=== PATIENT | male | born 1985 | race Caucasian/White ===

== ENCOUNTER → 2020-01-07 11:40 | Outpatient (BNVA) | payer OTHER, SELFPAY | PROVIDERS: Visit Provider Nurse Practitioner Family | DX: R06.00 Dyspnea, unspecified (principal); R53.83 Other fatigue; Z11.59 Encounter for screening for other viral diseases | CPT/HCPCS: 87635 ==

== ENCOUNTER 2020-01-08 19:41 | Emergency (ER) | payer OTHER, SELFPAY ==
[2020-01-08 19:47] VITALS: BP 127/81; PULSE 98; RESP 18; TEMP 36.9; O2SAT 99; BMI 23.7
[2020-01-08 20:11] VITALS: BP 125/81; PULSE 98; RESP 17; O2SAT 98
--- NOTE | 2020-01-08 20:21 | W.ED.GENADLT ---
HPI - General Adult General: Chief complaint: General Medical Stated complaint: cp Time Seen by Provider: 01/08/20 20:01 History of Present Illness: HPI narrative: Patient is a 34-year-old male that comes to the ED with near syncope and abdominal pain is moved into the scrotum area. Patient says symptoms started 2 days ago on . The near syncope events have happened twice in the last 2 days and both occurred when he was up and active. Patient describes getting an numbness tingling feeling and getting lightheaded and he had to sit down and rest. He did not pass out or have any loss of consciousness. He said after he rested his symptoms went away. Denies any chest pain during near syncope episode as well. In the last 24 hours patient is started having some mid abdominal pain that has now moved down into the scrotum area. He describes the scrotum pain getting worse after he urinates. Denies any hematuria, dysuria, constipation, diarrhea, blood in the stool, nausea/vomiting, fevers, chills, penile discharge or lesions. Associated symptoms: Deny chest pain, dyspnea, headache(s), nausea, rash, palpitations or vomiting Review of Systems Const: Denies: fever(s), chills or fatigue Eyes: Denies: change in vision or eye discomfort ENMT: Denies: throat pain, odynophagia, nasal discharge or nasal congestion Card: Reports: lightheadedness (Numbness and tingling sensation throughout his body during near syncopal episode) and pre-syncope; Denies: chest pain, palpitations, edema, swelling of feet/ankles, dyspnea on exertion or orthopnea Resp: Denies: dyspnea, productive cough or non-productive cough GI: Reports: abdominal pain; Denies: nausea, vomiting, diarrhea, constipation or hematochezia : Reports: genital pain; Denies: flank pain, difficulty urinating, dysuria, hematuria, penile discharge or scrotal swelling Musc: Denies: neck pain, back pain or extremity swelling Skin/Breast: Denies: rash or new lesions Neuro: Denies: headache(s), numbness in extremities or weakness in extremities Physical Exam Const: COMMON NORMALS: no acute distress, patient oriented x3, healthy appearing and alert GENERAL APPEARANCE: cooperative and comfortable HENMT: COMMON NORMALS: normocephalic HEAD & SCALP: normocephalic MOUTH: Normal oral and palatal mucosa present THROAT: posterior oropharynx normal and uvula midline Eye: COMMON NORMALS: Equal, round and reactive pupils present PUPIL: Yes Equal, round and reactive pupils present Neck/C-Spine: COMMON NORMALS: supple GENERAL: Yes normal visual inspection Resp: COMMON NORMALS: normal respiratory effort, No retractions, No use of accessory muscles and clear to auscultation bilaterally AUSCULTATION: clear to auscultation bilaterally Cardio: COMMON NORMALS: regular rate, regular rhythm, S1 normal heart sound present, S2 normal heart sound present, No gallops present (Cardio), No clicks present (Cardio), No murmurs present (Cardio) and Peripheral pulses 2+ throughout RATE: regular rate RHYTHM: regular rhythm HEART SOUNDS: S1 normal heart sound present and S2 normal heart sound present PERIPHERAL PULSES: Peripheral pulses 2+ throughout GI: COMMON NORMALS: Normal to inspection, nondistended, normoactive bowel sounds present, Soft to palpation, non-tender and no masses PALPATION: Yes Soft to palpation : COMMON NORMALS: Yes no CVA tenderness BLADDER/KIDNEY EXAM: Yes no CVA tenderness SCROTUM: Yes Scrotal tenderness present Back/Pelvis: COMMON NORMALS: no CVA tenderness Extremity: COMMON NORMALS: normal to inspection and no pedal edema Neuro: COMMON NORMALS: patient oriented x3, CN's II-XII intact bilaterally, moves all extremities, no focal motor deficits and no sensory deficits noted SENSORIUM/ORIENTATION: Yes alert SENSORY EXAM: Yes extremities (intact) MOTOR EXAM: 5/5 motor strength present throughout Skin: COMMON NORMALS: no rashes or lesions noted GENERAL SKIN EXAM: no rashes or lesions noted and dry skin Course ED course: Heart Score-1-no history of diabetes, hypertension, hypercholesterolemia or smoking. Vital Signs: Vital signs: Vital Signs Temperature 98.4 F 01/08/20 19:47 Pulse Rate 72 01/08/20 21:50 Respiratory Rate 97 H 01/08/20 21:50 Blood Pressure 119/75 01/08/20 21:50 Pulse Oximetry 97 01/08/20 21:50 MDM - General Adult MDM Narrative: Medical decision making narrative: Patient is a 34-year-old male who comes to the ED with near syncopal episode and genital pain. Exam shows a patient no acute distress or pain. He had some mild tenderness upon palpation of the scrotum. EKG showed normal sinus rhythm with no signs of ST segment elevation or depression seen. Troponin negative. HEART score-1 White blood cells 5.6. CMP and UA were unremarkable. Ultrasound of scrotum showed spermatocele, but no torsion or acute epididymitis. Patient was diagnosed with near syncope and spermatocele. Patient told to follow-up with PCP in 7 to 10 days for reevaluation. Return to ED precautions given. Patient understood and agree with plan. Lab Data: Attestation: I reviewed the patient's lab results. Labs: Lab Results 01/08/20 01/08/20 01/08/20 Range/Units 20:08 20:08 20:08 WBC 5.6 (4.0-10.0) 10^3/ uL RBC 5.03 (4.1-5.3) 10^6/u L Hgb 14.8 (11.7-16.6) g/dL Hct 44.5 (42.0-52.0) % MCV 88.5 (80-94) fL MCH 29.4 (28.0-34.0) pg MCHC 33.3 (30.0-36.0) g/dL RDW 12.0 L (12.1-15.1) % Plt Count 232 (130-400) 10^3/c mm MPV 10.3 (7.4-10.4) fL Neut % (Auto) 66.2 % Lymph % (Auto) 21.0 % Walton % (Auto) 11.2 % Eos % (Auto) 1.2 % Baso % (Auto) 0.4 % Neut # (Auto) 3.72 (1.8-7.7) 10^3/u L Lymph # (Auto) 1.2 (0.8-4.8) 10^3/u L Walton # (Auto) 0.6 (0.2-0.9) 10^3/u L Eos # (Auto) 0.1 (0.0-0.8) 10^3/u L Baso # (Auto) 0.0 (0.0-0.1) 10^3/u L Nucleated RBC % (a uto) 0 % Nucleated RBCs # 0.0 /100WBC Sodium 137 (136-145) mmol/L Potassium 3.3 L (3.5-5.1) mmol/L Chloride 102 (98-107) mmol/L Carbon Dioxide 23 (22-29) mmol/L Anion Gap 15.3 (5-19) BUN 8 (6-20) mg/dL Creatinine 0.8 (0.7-1.2) mg/dL GFR Calculation 109.4 (90-130) mL/min Glucose 130 H (65-115) mg/dL Calculated Osmolal ity 282 L (285-295) mOsm/k g Calcium 10.0 (8.5-10.5) mg/dL Total Bilirubin 0.6 (0.15-1.2) mg/dL AST 13 (0-40) U/L ALT 9 (0-41) U/L Alkaline Phosphata se 61 (40-130) IU/L Troponin T Baselin e 6 (0-15) ng/L Total Protein 7.0 (6.6-8.7) g/dL Albumin 4.8 (3.5-5.2) g/dL Globulin 2.2 (1.3-4.6) g/dL Urine Color (Yellow) Urine Appearance (CLEAR) Urine pH (5-7) Ur Specific Gravit y (1.005-1.030) Urine Protein (Negative) Urine Glucose (UA) (Normal) Urine Ketones (Negative) Urine Blood (Negative) Urine Nitrate (Negative) Urine Bilirubin (NEGATIVE) Urine Urobilinogen (Negative) mg/dL Ur Leukocyte Bell ase (Negative) 01/08/20 Range/Units 20:08 WBC (4.0-10.0) 10^3/ uL RBC (4.1-5.3) 10^6/u L Hgb (11.7-16.6) g/dL Hct (42.0-52.0) % MCV (80-94) fL MCH (28.0-34.0) pg MCHC (30.0-36.0) g/dL RDW (12.1-15.1) % Plt Count (130-400) 10^3/c mm MPV (7.4-10.4) fL Neut % (Auto) % Lymph % (Auto) % Walton % (Auto) % Eos % (Auto) % Baso % (Auto) % Neut # (Auto) (1.8-7.7) 10^3/u L Lymph # (Auto) (0.8-4.8) 10^3/u L Walton # (Auto) (0.2-0.9) 10^3/u L Eos # (Auto) (0.0-0.8) 10^3/u L Baso # (Auto) (0.0-0.1) 10^3/u L Nucleated RBC % (a uto) % Nucleated RBCs # /100WBC Sodium (136-145) mmol/L Potassium (3.5-5.1) mmol/L Chloride (98-107) mmol/L Carbon Dioxide (22-29) mmol/L Anion Gap (5-19) BUN (6-20) mg/dL Creatinine (0.7-1.2) mg/dL GFR Calculation (90-130) mL/min Glucose (65-115) mg/dL Calculated Osmolal ity (285-295) mOsm/k g Calcium (8.5-10.5) mg/dL Total Bilirubin (0.15-1.2) mg/dL AST (0-40) U/L ALT (0-41) U/L Alkaline Phosphata se (40-130) IU/L Troponin T Baselin e (0-15) ng/L Total Protein (6.6-8.7) g/dL Albumin (3.5-5.2) g/dL Globulin (1.3-4.6) g/dL Urine Color Yellow (Yellow) Urine Appearance Clear (CLEAR) Urine pH 5 (5-7) Ur Specific Gravit y 1.020 (1.005-1.030) Urine Protein Neg (Negative) Urine Glucose (UA) Norm (Normal) Urine Ketones Negative (Negative) Urine Blood Neg (Negative) Urine Nitrate Negative (Negative) Urine Bilirubin Neg (NEGATIVE) Urine Urobilinogen Norm (Negative) mg/dL Ur Leukocyte Bell ase Negative (Negative) Imaging Data^: US: Attestation: I personally reviewed and interpreted this imaging study as follows: Radiologist's impression: Scrotal ultrasound?prelim report showed a spermatocele but no signs of epididymitis, torsion or testicular mass. Discharge Plan Discharge Patient Disposition: Home Clinical Impression: Syncope, near, Spermatocele Condition: Stable Discharge Orders: Discharge Order (Routine); Ordered 01/08/20 Ordered By: Ray Nicole Referrals: Kacy Padilla FNP [Primary Care Provider] - Discharge Diet: Regular Discharge Activity: Increase activity as tolerated Patient Instructions: Near Syncope (ED) Activity Restrictions/Additional Instructions: Follow-up with medical provider as directed in 7-10 days. continue taking all home medications as prescribed. Drink plenty of fluids and stay hydrated. Take over the counter Tylenol or ibuprofen for any pain or fevers. Return to the ER or your medical provider if condition worsens. Please read and understand discharge instructions. If any questions, please ask. Discharge Date/Time: 01/08/20 21:48 Coding Level of Care Code ED Welfare Manager for Jimmyg Fwd Exam Comprehensive
--- NOTE | 2020-01-08 20:22 | ECG_ITS ---
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 Measurements Intervals [place] Rate: 83 P: 59 ID: 140 QRS: 39 QRSD: 89 T: 54 QT: 336 QTc: 395 Interpretive Statements SINUS RHYTHM WITH SINUS ARRHYTHMIA POSSIBLE LEFT ATRIAL ENLARGEMENT [-0.1mV P WAVE IN V1/V2] No previous ECG available for comparison Electronically Signed On 01-09-2020 22:51:29 CDT by Ludwin Booker M.D. [id number]
[2020-01-08 20:33] LABS: Basophils % 0.4 %; Eosinophils # 0.1 10^3/uL (0.0-0.8); Eosinophils % 1.2 %; Hematocrit 44.5 % (42.0-52.0); Hemoglobin 14.8 g/dL (11.7-16.6); Lymphocytes # 1.2 10^3/uL (0.8-4.8); Mean Corpuscular HGB Conc 33.3 g/dL (30.0-36.0); Mean Corpuscular Hemoglobin 29.4 pg (28.0-34.0); Mean Corpuscular Volume 88.5 fL (80-94); Mean Platelet Volume 10.3 fL (7.4-10.4); Monocytes # 0.6 10^3/uL (0.2-0.9); Monocytes % 11.2 %; Neutrophils # 3.72 10^3/uL (1.8-7.7); Neutrophils % 66.2 %; Nucleated Red Blood Cells % 0 %; Platelet Count 232 10^3/cmm (130-400); Red Blood Count 5.03 10^6/uL (4.1-5.3); White Blood Count 5.6 10^3/uL (4.0-10.0)
--- NOTE | 2020-01-08 20:34 | USR_ITS ---
PROCEDURE INFORMATION: Exam: US Scrotum Exam date and time: 01/08/2020 8:55 PM Age: 34 years old Clinical indication: Scrotum pain; Additional info: Scrotum pain/pressure TECHNIQUE: Imaging protocol: Real-time ultrasound of the scrotum and contents with color Doppler and image documentation. COMPARISON: No relevant prior studies available. FINDINGS: Right testicle: 4.5 x 2.9 x 2.9 cm right testicle. Left testicle: 4.5 x 2.5 x 3.0 cm left testicle. Epididymides: Dilated avascular spaces in the epididymi bilaterally consistent with multiple epididymal cysts and or spermatoceles bilaterally which cannot be distinguished on ultrasound. Both are thought to be secondary to previous episodes of epididymitis and or trauma. 1.1 x 1.1 by 1.0 cm right epididymis. 1.1 x 1.3 x 1.0 cm left epididymis. Scrotum: Normal. Other findings: Normal testicular perfusion bilaterally with no torsion or intrinsic testicular mass. US/US scrotum [id number] IMPRESSION: 1. Dilated avascular spaces in the epididymi bilaterally consistent with multiple epididymal cysts and or spermatoceles bilaterally which cannot be distinguished on ultrasound. Both are thought to be secondary to previous episodes of epididymitis and or trauma. 2. Normal testicular perfusion bilaterally with no torsion or intrinsic testicular mass.
[2020-01-08 20:41] LABS: Add Urine Microscopic? NO
[2020-01-08 20:43] LABS: Alanine Aminotransferase 9 U/L (0-41); Albumin Level 4.8 g/dL (3.5-5.2); Alkaline Phosphatase 61 IU/L (40-130); Anion Gap 15.3 (5-19); Aspartate Amino Transferase 13 U/L (0-40); Blood Urea Nitrogen 8 mg/dL (6-20); Carbon Dioxide 23 mmol/L (22-29); Chloride 102 mmol/L (98-107); Globulin 2.2 g/dL (1.3-4.6); Glomerular Filtration Rate 109.4 mL/min (90-130); Glucose 130 mg/dL (65-115); Osmolality Calculated 282 mOsm/kg (285-295); Potassium 3.3 mmol/L (3.5-5.1); Sodium 137 mmol/L (136-145); Total Bilirubin 0.6 mg/dL (0.15-1.2)
[2020-01-08 20:44] LABS: Troponin(5th) Baseline 6 ng/L (0-15)
[2020-01-08 20:45] LABS: Bilirubin Urine Neg (NEGATIVE); Blood Urine Neg (Negative); Glucose Urine UA Norm (Normal); Ketones Urine Negative (Negative); Leukocyte Esterase Urine Negative (Negative); Nitrate Urine Negative (Negative); Protein Urine Neg (Negative); Urine Appearance Clear (CLEAR); Urine Color Yellow (Yellow); Urobilinogen Urine Norm (Negative); pH Urine 5 (5-7)
[2020-01-08 20:47] VITALS: BP 114/89; PULSE 81; RESP 13; O2SAT 98
[2020-01-08 21:00] VITALS: BP 128/96; PULSE 75; RESP 15; O2SAT 99
[2020-01-08] MEDS: potassium chloride ER 10 mEq Tablet 20 MEQ PO (21:43)
[2020-01-08 21:50] VITALS: BP 119/75; PULSE 72; RESP 97; O2SAT 97
== END 2020-01-08 21:48 | disposition home or self-care (01) ==
PROVIDERS: Emergency Provider Physician Assistant; PCP Nurse Practitioner Family
DX: R55 Syncope and collapse (principal); N43.40 Spermatocele of epididymis, unspecified
CPT/HCPCS: 12345; 76870; 80053; 81003; 84484; 85025; 93005; 99283

== ENCOUNTER 2020-01-20 10:58 | Outpatient (CLI) | payer OTHER, SELFPAY ==
--- NOTE | 2020-01-20 11:02 | CT_ITS ---
WS: [id number] CT scan of the head, 01/20/2020 Clinical Data: DIZZINESS AND GIDDINESS Comparison: None. DLP: 992.[address] scans at [facility] use at least one of these dose optimization techniques: automat ed exposure control; mA and/or kV adjustment per patient size (includes targeted exams where dose is matched to clinical indication); or iterative reconstruction. Findings: The ventricular system is normal without shift. No recent infarct or hemorrhage is seen. There are no abnormal intracerebral masses. The cerebellum and brainstem are not remarkable. Bony windows of the skull and skull base show no fractures or erosions. The mastoid air cells, international sourcing manager al auditory canals, sella turcica, intraorbital contents, and paranasal sinuses are unremarkable. CT/CT head wo con* [id number] Impression: Negative CT scan of the head
== END 2020-01-20 10:59 | disposition home or self-care (01) ==
LOC: RADWPI 11:02
PROVIDERS: PCP Nurse Practitioner Family; Visit Provider Nurse Practitioner Family
DX: R42 Dizziness and giddiness (principal); R53.1 Weakness
CPT/HCPCS: 70450

== ENCOUNTER 2020-02-23 08:28 | Outpatient (CLI) | payer OTHER, SELFPAY ==
--- NOTE | 2020-02-23 08:57 | ECG_ITS ---
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 Interpretive Statements NAME OF STUDY: TREADMILL STRESS TEST INDICATION: Chest Pain PROCEDURE: At the baseline, the patient's blood pressure was 113/80 with a heart rate of 93. The baseline electrocardiogram showed normal sinus rhythm with some nonspecific T wave changes.. The patient exercised for 9 minutes and 56 seconds on a standard Bulmaro protocol. Patient attained a maximum heart rate of 181 beats per minute( 98 % of the maximum predicted heart rate) with a blood pressure at the peak exercise of 150/78 mm Hg. The EKG at the peak exercise revealed no significant changes. Patient did not have any chest pain or any significant cardiac arrhythmias with the exercise During the recovery phase, there were no new changes. Blood pressure at the end of the recovery phase was 126/88 mm Hg with a heart rate of 105 per minute. CONCLUSION: 1. Normal EKG response to treadmill exercise 2. No exercise-induced chest pain or cardiac arrhythmia 3. Good exercise tolerance, attained a maximum of 13.5 METs Electronically Signed On 02-23-2020 20:06:06 CDT by Ludwin Booker M.D. [id number]
[2020-02-23 08:59] VITALS: BMI 24.4
[2020-02-23 09:40] VITALS: BP 126/88; PULSE 105
--- NOTE | 2020-02-23 09:51 | USCV_ITS ---
Noé Irizarry Age: 34 Gender: M : 1985 Exam Date: 02/23/2020 09:55 Ordering Phys: Kacy Padilla Technologist: Dillon Valdes Exam Location: [facility] [place] Indication: CHEST PAIN BP: 122 / 78 HR: 95 Rhythm: Sinus Technical Quality: Good MEASUREMENTS (Male / Female) Normal Values 2D ECHO LV Diastolic Diameter PLAX 4.4 cm 4.2 - 5.9 / 3.9 - 5.3 cm LV Systolic Diameter PLAX 2.8 cm IVS Diastolic Thickness 0.9 cm 0.6 - 1.0 / 0.6 - 0.9 cm IVS Systolic Thickness 1.4 cm LVPW Diastolic Thickness 1.0 cm 0.6 - 1.0 / 0.6 - 0.9 cm LVPW Systolic Thickness 1.2 cm LVOT Diameter 2.1 cm LV Ejection Fraction 2D Teich 65.5 % LV Ejection Fraction MOD 2C 66.7 % LV Ejection Fraction 2C AL 64.7 % LA Diameter 3.4 cm LA Width 3.3 cm LA Height 4.4 cm RA Width 3.4 cm RA Height 4.0 cm Aorta at Sinotubular Diameter 1.1 cm M-MODE LV Diastolic Diameter MM 4.5 cm 4.2 - 5.9 / 3.9 - 5.3 cm LV Systolic Diameter MM 2.5 cm LV Ejection Fraction MM Teich 75.9 % IVS Diastolic Thickness MM 1.0 cm 0.6 - 1.0 / 0.6 - 0.9 cm IVS Systolic Thickness MM 1.5 cm LVPW Diastolic Thickness MM 0.9 cm 0.6 - 1.0 / 0.6 - 0.9 cm LVPW Systolic Thickness MM 1.2 cm RV Diastolic Diameter MM 1.1 cm Aortic Annulus Diameter 3.6 cm LA Ao Ratio MM 0.9 MV E Point Septal Separation 0.6 cm DOPPLER AV Peak Velocity 108.0 cm/s LVOT Peak Velocity 107.0 cm/s AV Area Cont Eq vti 3.1 cm squared AV Area Cont Eq pk 3.4 cm squared MV Area PHT 5.0 cm squared Mitral E to A Ratio 0.8 MV E' Velocity 16.0 cm/s Mitral E to MV E' Ratio 4.8 Mitral E to LV E' Lateral Ratio 4.3 Mitral E to LV E' Septal Ratio 5.5 TR Peak Velocity 228.0 cm/s TR Peak Gradient 20.9 mmHg TV Peak E Velocity 123.0 cm/s Right Atrial Pressure 3.0 mmHg Pulmonary Artery Systolic Pressu 23.8 mmHg PV Peak Velocity 106.0 cm/s FINDINGS Left Ventricle Normal left ventricular size and systolic function, EF 63 %. No regional wall motion abnormalities. Right Ventricle Normal right ventricular size and systolic function. Right Atrium The right atrium is normal in size. Left Atrium The left atrium is normal in size. Mitral Valve No gross abnormalities Aortic Valve Appears to be tricuspid with no significant abnormalities. Tricuspid Valve No gross abnormalities.trace tricuspid valve regurgitation. Estimated pulmonary artery peak systolic pressure 24 mmHg Pulmonic Valve No gross abnormalities Pericardium Normal pericardium without effusion. Aorta Normal ascending aorta dimension. CONCLUSIONS Normal left ventricular size and systolic function, EF 63 %. No regional wall motion abnormalities. Trace tricuspid valve regurgitation. Estimated pulmonary artery peak systolic pressure 24 mmHg. Normal cardiac chamber sizes. No significant stenotic or ureteral lesions. There is no pericardial effusion. There are no intracardiac masses. No previous study is available for comparison. Dr Ludwin Booker MD FACC (Electronically Signed) Final Date: 23 February 2020 18:43 S
== END 2020-02-23 08:29 | disposition home or self-care (01) ==
LOC: CDL 08:30
PROVIDERS: PCP Nurse Practitioner Family; Visit Provider Nurse Practitioner Family
DX: R07.9 Chest pain, unspecified (principal); I07.1 Rheumatic tricuspid insufficiency
CPT/HCPCS: 93017; 93306

== ENCOUNTER 2020-02-23 14:07 | Emergency (ER) | payer OTHER, SELFPAY ==
[2020-02-23 14:08] VITALS: BP 131/80; PULSE 109; RESP 22; TEMP 36.4; O2SAT 99; BMI 24.4
--- NOTE | 2020-02-23 14:11 | XR_ITS ---
WS: [id number] EXAM: AP CHEST: PORTABLE UPRIGHT DATE OF EXAM: 02/23/2020, 1413 hours COMPARISON: NONE HISTORY: Patient is 34 years old with atraumatic chest pain. FINDINGS: The cardiac silhouette is normal in size. The mediastinal contours are normal. The pulmonary vas cularity is normal. The lungs are clear of infiltrate. There is no effusion or pneumothorax. Sligh t deformity to the upper outer aspect of the left ribs is noted. Presumably congenital. XR/XR chest 1V portable [id number] IMPRESSION: No acute pulmonary disease.
--- NOTE | 2020-02-23 14:11 | ECG_ITS ---
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 Measurements Intervals [place] Rate: 92 P: 79 ME: 140 QRS: 78 QRSD: 87 T: 76 QT: 343 QTc: 425 Interpretive Statements SINUS RHYTHM Compared to ECG 01/08/2020 20:00:17 Sinus arrhythmia no longer present Electronically Signed On 02-23-2020 19:42:42 CDT by Ludwin Booker M.D. [id number]
--- NOTE | 2020-02-23 14:17 | W.ED.CHESTPA ---
HPI - Chest Pain General: Chief Complaint: Abdominal Pain Stated Complaint: CP Time Seen by Provider: 02/23/20 14:10 Source: patient Mode of arrival: ambulatory Limitations: no limitations History of Present Illness: HPI narrative: Patient is a 34-year-old male who presents to ED today with complaints of 6 weeks worth of intermittent chest pain. Patient tells me pain seems to come and go and location seems to jump around . Patient has been seen by an out-of-town clinic recently and had a stress test and echocardiogram performed earlier this morning. He has been seen by [facility] as well and prescribed Xanax for possible anxiety. Patient tells me he has taken this medication without relief. He states his chest pain does not worsen with exertion or position. He has not found any exacerbating factors or alleviating factors to his discomfort. He states occasionally he will feel short of breath. Denies diaphoresis, nausea, vomiting. He has no known cardiac or pulmonary history. No known risk factors for pulmonary embolus. MD complaint: chest pain Onset (ago): week(s) Timing of current episode: episodic Prior episodes: Yes Onset: during rest Relieving factors: nothing Exacerbating factors: nothing Associated symptoms: Reports dyspnea; Deny abdominal pain, fever(s), nausea, palpitations, syncope or vomiting Review of Systems Const: Denies: fever(s), chills, body aches or fatigue Eyes: Denies: change in vision, blurry vision, photophobia, floaters or seeing flashes ENMT: Denies: odynophagia Card: Reports: chest pain; Denies: palpitations, irregular heart rhythm, edema, swelling of feet/ankles, lightheadedness, syncope, pre-syncope, dyspnea on exertion, orthopnea or leg pain with exertion Resp: Reports: dyspnea; Denies: productive cough, non-productive cough, hemoptysis or chest congestion GI: Denies: abdominal pain, nausea, vomiting or diarrhea Musc: Denies: neck pain or back pain Skin/Breast: Denies: rash Neuro: Denies: headache(s), numbness in extremities, weakness in extremities or sensory changes [facility] [place] [facility] PFSH: Social History (Updated 02/23/20 @ 08:48 by Renny Kenney RN) Smoking and tobacco status: never smoked Physical Exam Const: COMMON NORMALS: no acute distress, average body habitus, patient oriented x3, no limitations, healthy appearing, alert and well nourished Neck/C-Spine: COMMON NORMALS: full ROM, no lymphadenopathy and no meningeal signs Chest: COMMONS NORMALS: normal inspection of the chest and normal palpation of entire chest wall Resp: COMMON NORMALS: normal respiratory effort and clear to auscultation bilaterally AUSCULTATION: clear to auscultation bilaterally Cardio: COMMON NORMALS: regular rhythm RATE: tachycardic RHYTHM: regular rhythm GI: COMMON NORMALS: Normal to inspection, nondistended, normoactive bowel sounds present, Soft to palpation, No hepatosplenomegaly present and no masses PALPATION: Yes Soft to palpation, Yes Tenderness to palpation present (GI) (mild epigastric ) and Yes No hepatosplenomegaly present Neuro: COMMON NORMALS: patient oriented x3 SENSORIUM/ORIENTATION: Yes alert MENINGEAL SIGNS: Yes no meningeal signs Psych: COMMON NORMALS: mental status grossly normal, Normal thought process present, cooperative and activity/motor behavior normal APPEARANCE: Yes grossly normal ATTITUDE: Yes calm ACTIVITY/MOTOR BEHAVIOR: Yes appropriate eye contact SPEECH: Yes excessive and Yes rapid THOUGHT PROCESS: Normal thought process present Skin: COMMON NORMALS: no rashes or lesions noted GENERAL SKIN EXAM: no rashes or lesions noted Course Vital Signs: Vital signs: Vital Signs Temperature 97.5 F L 02/23/20 14:08 Pulse Rate 80 02/23/20 15:47 Respiratory Rate 15 02/23/20 15:47 Blood Pressure 120/73 02/23/20 15:47 Pulse Oximetry 97 02/23/20 15:47 MDM - Chest Pain MDM Narrative: Medical decision making narrative: Patient clinically appears in no acute distress. He is not complaining of pain currently. His work-up including CBC, CMP, d-dimer, troponin, EKG, CXR are all non-concerning. Potassium was mildly low at 3.1-this was replaced here. Mag normal. His d-dimer is negative. Initial troponin is 6. He has no ischemic changes on his EKG. CXR is normal. I do not have results of his stress test and echocardiogram that were performed earlier today. He states these were scheduled to be faxed to his PCP. Recommend he contact their office tomorrow to see if they have received results. Return to ED precautions given. Lab Data: Labs: Lab Results 02/23/20 02/23/20 02/23/20 Range/Units 14:21 14:21 14:21 WBC 8.5 (4.0-10.0) 10^3/ uL RBC 5.47 H (4.1-5.3) 10^6/u L Hgb 16.0 (11.7-16.6) g/dL Hct 46.8 (42.0-52.0) % MCV 85.6 (80-94) fL MCH 29.3 (28.0-34.0) pg MCHC 34.2 (30.0-36.0) g/dL RDW 11.7 L (12.1-15.1) % Plt Count 257 (130-400) 10^3/c mm MPV 9.9 (7.4-10.4) fL Neut % (Auto) 80.8 % Lymph % (Auto) 10.1 % [place] % (Auto) 8.5 % Eos % (Auto) 0.0 % Baso % (Auto) 0.5 % Neut # (Auto) 6.83 (1.8-7.7) 10^3/u L Lymph # (Auto) 0.9 (0.8-4.8) 10^3/u L [place] # (Auto) 0.7 (0.2-0.9) 10^3/u L Eos # (Auto) 0.0 (0.0-0.8) 10^3/u L Baso # (Auto) 0.0 (0.0-0.1) 10^3/u L Nucleated RBC % (a uto) 0 % Nucleated RBCs # 0.0 /100WBC D-Dimer (0-0.59) ug/mIFE U Sodium 138 (136-145) mmol/L Potassium 3.1 L (3.5-5.1) mmol/L Chloride 102 (98-107) mmol/L Carbon Dioxide 19 L (22-29) mmol/L Anion Gap 20.1 H (5-19) BUN 9 (6-20) mg/dL Creatinine 1.1 (0.7-1.2) mg/dL GFR Calculation 75.7 L (90-130) mL/min Glucose 157 H (65-115) mg/dL Calculated Osmolal ity 288 (285-295) mOsm/k g Calcium 9.3 (8.5-10.5) mg/dL Magnesium (1.7-2.3) mg/dL Total Bilirubin 0.7 (0.15-1.2) mg/dL AST 13 (0-40) U/L ALT 10 (0-41) U/L Alkaline Phosphata se 69 (40-130) IU/L Troponin T Baselin e 6 (0-15) ng/L Total Protein 7.6 (6.6-8.7) g/dL Albumin 4.7 (3.5-5.2) g/dL Globulin 2.9 (1.3-4.6) g/dL Lipase (13-60) U/L 02/23/20 02/23/20 02/23/20 Range/Units 14:21 14:21 14:21 WBC (4.0-10.0) 10^3/ uL RBC (4.1-5.3) 10^6/u L Hgb (11.7-16.6) g/dL Hct (42.0-52.0) % MCV (80-94) fL MCH (28.0-34.0) pg MCHC (30.0-36.0) g/dL RDW (12.1-15.1) % Plt Count (130-400) 10^3/c mm MPV (7.4-10.4) fL Neut % (Auto) % Lymph % (Auto) % [place] % (Auto) % Eos % (Auto) % Baso % (Auto) % Neut # (Auto) (1.8-7.7) 10^3/u L Lymph # (Auto) (0.8-4.8) 10^3/u L [place] # (Auto) (0.2-0.9) 10^3/u L Eos # (Auto) (0.0-0.8) 10^3/u L Baso # (Auto) (0.0-0.1) 10^3/u L Nucleated RBC % (a uto) % Nucleated RBCs # /100WBC D-Dimer <= 0.27 (0-0.59) ug/mIFE U Sodium (136-145) mmol/L Potassium (3.5-5.1) mmol/L Chloride (98-107) mmol/L Carbon Dioxide (22-29) mmol/L Anion Gap (5-19) BUN (6-20) mg/dL Creatinine (0.7-1.2) mg/dL GFR Calculation (90-130) mL/min Glucose (65-115) mg/dL Calculated Osmolal ity (285-295) mOsm/k g Calcium (8.5-10.5) mg/dL Magnesium 1.8 (1.7-2.3) mg/dL Total Bilirubin (0.15-1.2) mg/dL AST (0-40) U/L ALT (0-41) U/L Alkaline Phosphata se (40-130) IU/L Troponin T Baselin e (0-15) ng/L Total Protein (6.6-8.7) g/dL Albumin (3.5-5.2) g/dL Globulin (1.3-4.6) g/dL Lipase 31 (13-60) U/L Imaging Data^: CXR: Radiologist's impression: [address] [address] XRay Report Signed Patient: Noé Irizarry Unit #: [id number] : 1985 Age/Sex: 34 / M ADM Date: 02/23/20 Loc: ER Room/Bed: Attending Dr: Ordering Provider/Ordering MD: Farzana Friedman Date of Service: 02/23/20 Procedure(s): XR chest 1V portable [id number] Accession Number(s): [id number] Report Number: [id number] WS: [id number] EXAM: AP CHEST: PORTABLE UPRIGHT DATE OF EXAM: 02/23/2020, 1413 hours COMPARISON: NONE HISTORY: Patient is 34 years old with atraumatic chest pain. FINDINGS: The cardiac silhouette is normal in size. The mediastinal contours are normal. The pulmonary vascularity is normal. The lungs are clear of infiltrate. There is no effusion or pneumothorax. Slight deformity to the upper outer aspect of the left ribs is noted. Presumably congenital. XR/XR chest 1V portable [id number] IMPRESSION: No acute pulmonary disease. Dictated By: Jose Manuel Weaver MD Signed By: Jose Manuel Weaver MD Signed Date/Time: 02/23/201422 DD/ 22 EKG Data^: EKG 1: EKG interpretation date: 02/23/20 EKG interpretation time: 14:37 Interpretation: Sinus rhythm Rate [address] elevation or depression changes noted Discharge Plan Discharge Patient Disposition: Home Clinical Impression: Non-cardiac chest pain, Hypokalemia Condition: Stable Prescriptions: No Action sumatriptan succinate 50 mg tablet 50 mg PO ONCE PRN (Reason: Migraine Headache) RF: 0 alprazolam 0.25 mg tablet 0.25 mg PO BID PRN (Reason: Anxiety) RF: 0 escitalopram oxalate 10 mg tablet 10 mg PO DAILY RF: 0 Discharge Orders: Discharge Order (Routine); Ordered 02/23/20 Ordered By: Farzana Friedman Referrals: Kacy Padilla FNP [Primary Care Provider] - Activity Restrictions/Additional Instructions: As discussed please contact your primary care provider in the next 1 to 2 days to obtain results of your stress test and echocardiogram. They can advise you further on what to do next. You may return to the emergency department for worsening chest pain, shortness of breath, difficulty breathing, fevers, passing out episodes, or any other concerns you may have. Coding Level of Care Code ED Senior Quality Assurance Specialist for Chg Fwd Exam Comprehensive
[2020-02-23 14:35] LABS: Basophils % 0.5 %; Hematocrit 46.8 % (42.0-52.0); Lymphocytes # 0.9 10^3/uL (0.8-4.8); Lymphocytes % 10.1 %; Mean Corpuscular HGB Conc 34.2 g/dL (30.0-36.0); Mean Corpuscular Hemoglobin 29.3 pg (28.0-34.0); Mean Corpuscular Volume 85.6 fL (80-94); Mean Platelet Volume 9.9 fL (7.4-10.4); Monocytes # 0.7 10^3/uL (0.2-0.9); Monocytes % 8.5 %; Neutrophils # 6.83 10^3/uL (1.8-7.7); Neutrophils % 80.8 %; Nucleated Red Blood Cells % 0 %; Platelet Count 257 10^3/cmm (130-400); Red Blood Count 5.47 10^6/uL (4.1-5.3); Red Cell Distribution Width 11.7 % (12.1-15.1); White Blood Count 8.5 10^3/uL (4.0-10.0)
[2020-02-23 14:45] LABS: Alanine Aminotransferase 10 U/L (0-41); Albumin Level 4.7 g/dL (3.5-5.2); Alkaline Phosphatase 69 IU/L (40-130); Anion Gap 20.1 (5-19); Aspartate Amino Transferase 13 U/L (0-40); Blood Urea Nitrogen 9 mg/dL (6-20); Calcium 9.3 mg/dL (8.5-10.5); Carbon Dioxide 19 mmol/L (22-29); Chloride 102 mmol/L (98-107); Globulin 2.9 g/dL (1.3-4.6); Glomerular Filtration Rate 75.7 mL/min (90-130); Glucose 157 mg/dL (65-115); Osmolality Calculated 288 mOsm/kg (285-295); Potassium 3.1 mmol/L (3.5-5.1); Sodium 138 mmol/L (136-145); Total Bilirubin 0.7 mg/dL (0.15-1.2); Total Protein 7.6 g/dL (6.6-8.7); Troponin(5th) Baseline 6 ng/L (0-15)
[2020-02-23 14:49] LABS: D Dimer <= 0.27 ug/mIFEU (0-0.59)
[2020-02-23 14:54] LABS: Lipase 31 U/L (13-60)
[2020-02-23] MEDS: potassium chloride ER 10 mEq Tablet 40 MEQ PO (15:45)
[2020-02-23 15:47] VITALS: BP 120/73; PULSE 80; RESP 15; O2SAT 97
[2020-02-23 15:49] LABS: Magnesium 1.8 mg/dL (1.7-2.3)
[2020-02-23 16:28] VITALS: BP 111/72; PULSE 72; RESP 17; O2SAT 98
[2020-02-23 16:37] LABS: Troponin 5 2HR 6.53 ng/L (0-15); Troponin 5 2HR Delta 0.53 ABS# (0-10)
== END 2020-02-23 16:30 | disposition home or self-care (01) ==
PROVIDERS: Emergency Provider Physician Assistant; PCP Nurse Practitioner Family
DX: R07.89 Other chest pain (principal); E87.6 Hypokalemia
CPT/HCPCS: 12345; 36415; 71045; 80053; 83690; 83735; 84484; 85025; 85378; 93005; 99283; 99284

== ENCOUNTER → 2022-01-23 14:33 | Outpatient (BNVA) | payer OTHER, SELFPAY | PROVIDERS: PCP Clinical Nurse Specialist Adult Health; Visit Provider Clinical Nurse Specialist Adult Health | DX: Z00.00 Encounter for general adult medical examination without abnormal findings (principal); Z20.2 Contact with and (suspected) exposure to infections with a predominantly sexual mode of transmission; G43.909 Migraine, unspecified, not intractable, without status migrainosus | CPT/HCPCS: 80061; 87491; 87591 ==